=== PATIENT | male | born 1960 | race Caucasian/White ===

== ENCOUNTER 2019-04-17 09:56 | Emergency (ER) | payer BC ==
[~2019-04-17] VITALS: Ht 177.8 cm; Wt 90.0 kg
[~2019-04-17 09:56] MED LIST: LORTAB5 PO
[2019-04-17 11:03] VITALS: BP 135/83
== END 2019-04-17 11:10 | disposition home or self-care (01) | DRG 605 ==
LOC: ED 09:56
DX: S41.111A Laceration without foreign body of right upper arm, initial encounter (principal); S50.312A Abrasion of left elbow, initial encounter; W11.XXXA Fall on and from ladder, initial encounter

== ENCOUNTER 2024-11-26 07:43 | Day surgery (SDC) | payer MEDICARE ==
[~2024-11-26] VITALS: Ht 177.8 cm; Wt 78.9 kg
[~2024-11-26 07:43] MED LIST changes: +FAMOTIDINE40 M1 PO; +GAS RELIEF80 MG PO
[2024-11-26] MEDS ORDERED: FAMOTIDINE 10MG/ML 2ML SDV IV ONE (08:01)
[2024-11-26] MEDS ORDERED: LACTATED RINGER'S 1,000 ML IV ONE (08:01)
[2024-11-26] MEDS ORDERED: LIDOCAINE HCL 2% 2ML SDV IV ONE (09:51)
[2024-11-26] MEDS ORDERED: PROPOFOL 200 MG/20 ML VIAL IV ONE (09:51)
[2024-11-26 10:06] VITALS: BP 116/67
== END 2024-11-26 10:20 | disposition home or self-care (01) ==
LOC: ENDO 07:43 → ORM 11:00 → ENDO 11:00
PROVIDERS: ATTEND Surgery
PROC: 0DBN8ZX Excision of Sigmoid Colon, Via Natural or Artificial Opening Endoscopic, Diagnostic (ICD-10-PCS; principal; 2024-11-26)
PROC: 0DB68ZX Excision of Stomach, Via Natural or Artificial Opening Endoscopic, Diagnostic (ICD-10-PCS; 2024-11-26)
PROC: 0DB78ZX Excision of Stomach, Pylorus, Via Natural or Artificial Opening Endoscopic, Diagnostic (ICD-10-PCS; 2024-11-26)
DX: C16.8 Malignant neoplasm of overlapping sites of stomach (principal); K29.50 Unspecified chronic gastritis without bleeding; K63.5 Polyp of colon; K64.8 Other hemorrhoids